=== PATIENT | female | born 1975 | race Caucasian/White ===

== ENCOUNTER 2022-06-09 12:43 | Observation (INO) ==
[2022-06-09] MEDS ORDERED: Iopamidol - 370 500 ML MLS IVP ONE (13:06)
[2022-06-09 13:32] LABS: INR 1.1; Prothrombin Time 12.4 Seconds (9.4-12.1)
[2022-06-09 14:00] LABS: Bilirubin,Urine Negative (Negative); Blood,Urine Small (Negative); Clarity,Urine Clear (Clear); Color,Urine Light-Yellow (Yellow); Glucose,Urine (UA) Normal (Normal); Ketones,Urine 100 mg/dL (Negative); Leukocyte Esterase,Urine Negative (Negative); Mucus,Urine Few per lpf (None-Few); Nitrite,Urine Negative (Negative); Protein,Urine >=300 mg/dL (Neg-Trace); Specific Gravity,Urine > 1.030 (1.010-1.025); Squamous Epithelial Cell,Urine Moderate per hpf (None-Few); Urobilinogen,Urine Normal (Normal)
[2022-06-09] MEDS ORDERED: cefTRIAXone 1,000 MG in 0.9 % Sodium Chloride Mini Bag 100 ML IVPB ONE (14:18)
[2022-06-09 14:23] LABS: Basophils % 0.2 %; Immature Granulocytes % 0.3 % (0-4); Lymphocytes # 0.6 K/mcL (0.6-4.6); Lymphocytes % 6.7 %; Mean Corpuscular HGB Conc 33.4 g/dL (31.6-35.5); Mean Corpuscular Volume 89.8 fL (83.0-100.0); Mean Platelet Volume 9.3 fL (9.4-12.4); Monocytes # 0.2 K/mcL (0.0-1.3); Monocytes % 1.8 %; Neutrophils # 8.3 K/mcL (1.6-8.9); Platelet Count 244 K/mcL (140-400); Red Cell Distribution Width 12.6 % (11.5-14.5); White Blood Count 9.1 K/mcL (4.3-11.1)
[2022-06-09 14:24] LABS: Hemoglobin 14.7 g/dL (11.5-15.4)
[2022-06-09 14:46] LABS: Amphetamine Screen,Urine Negative ng/mL (Cutoff=1000); Barbiturate Screen,Urine Negative ng/mL (Cutoff=200); Benzodiazepines Screen,Urine Negative ng/mL (Cutoff=200); Cannabinoid Screen,Urine Positive ng/mL (Cutoff = 50); Cocaine Screen,Urine Negative ng/mL (Cutoff= 300); Opiate Screen,Urine Negative ng/mL (Cutoff=300); Phencyclidine Screen,Urine Negative ng/mL (Cutoff=25)
[2022-06-09] MEDS ORDERED: 0.9 % Sodium Chloride 1,000 ML IVC ONE (15:37)
[2022-06-09 15:39] LABS: Alanine Aminotransferase 17 Units/L (7-52); Albumin 4.6 g/dL (3.5-5.7); Albumin/Globulin Ratio 1.3 (1.1-2.2); Alkaline Phosphatase 51 Units/L (34-104); Aspartate Amino Transferase 13 Units/L (13-39); BUN/Creatinine Ratio 25 (6-26); Bilirubin,Direct 0.2 mg/dL (0.0-0.2); Bilirubin,Indirect 0.5 mg/dL (0.0-1.0); Bilirubin,Total 0.7 mg/dL (0.3-1.0); Blood Urea Nitrogen 16 mg/dL (6-20); Calcium 9.3 mg/dL (8.6-10.3); Carbon Dioxide 22 mEq/L (23-29); Chloride 106 mEq/L (98-107); Ethanol < 10 mg/dL (Less than 10); Globulin 3.6 g/dL (2.4-3.5); Glucose 107 mg/dL (70-105); Lipase 16 Units/L (11-82); Magnesium 1.9 mg/dL (1.6-2.6); Osmolality,Calculated 292 (280-300); Potassium 3.5 mEq/L (3.5-5.1); Sodium 140 mEq/L (136-145); Total Protein 8.2 g/dL (6.4-8.9); Troponin I < 0.03 ng/mL (< 0.04)
[2022-06-09 15:52] LABS: Thyroid Stimulating Hormone 0.807 mcIU/mL (0.340-5.600)
[2022-06-09] MEDS ORDERED: Naloxone 0.4 MG/ML INJ IVP PRN (16:23)
[2022-06-09] MEDS ORDERED: Ondansetron 4 MG/2 ML VIAL IVP PRN (16:23)
[2022-06-09] MEDS ORDERED: Melatonin 3 MG TABLET PO PRN (16:23)
[2022-06-09] MEDS ORDERED: Prochlorperazine 10 MG/2 ML VIAL IVP PRN (16:26)
[2022-06-09] MEDS: Ringers Solution, Lactated 1,000 ML IVC SCH (18:06)
[2022-06-09] MEDS: Pantoprazole 40 MG VIAL IVP SCH (18:07)
[2022-06-10] MEDS ORDERED: Acetaminophen 325 MG TABLET PO ONE (00:36)
[2022-06-10] MEDS: Ringers Solution, Lactated 1,000 ML IVC SCH (02:07)
[2022-06-10] MEDS: Pantoprazole 40 MG VIAL IVP SCH (06:02)
[2022-06-10] MEDS ORDERED: Ketorolac 30 MG/ML VIAL IVP ONE (08:41)
[2022-06-10] MEDS ORDERED: Nicotine 21 MG PATCH.TD24 TD SCH (09:00)
[2022-06-10 09:38] LABS: Basophils % 0.4 %; Eosinophils % 0.3 %; Immature Granulocytes % 0.1 % (0-4); Lymphocytes # 2.1 K/mcL (0.6-4.6); Lymphocytes % 28.8 %; Mean Corpuscular Hemoglobin 30.4 pg (28.0-33.3); Mean Corpuscular Volume 89.2 fL (83.0-100.0); Mean Platelet Volume 9.4 fL (9.4-12.4); Monocytes # 0.5 K/mcL (0.0-1.3); Monocytes % 7.2 %; Neutrophils # 4.7 K/mcL (1.6-8.9); Platelet Count 248 K/mcL (140-400); Red Blood Count 5.27 M/mcL (3.82-4.97); Segmented Neutrophils % 63.2 %; White Blood Count 7.4 K/mcL (4.3-11.1)
[2022-06-10 10:02] LABS: BUN/Creatinine Ratio 20 (6-26); Blood Urea Nitrogen 14 mg/dL (6-20); Calcium 9.6 mg/dL (8.6-10.3); Carbon Dioxide 24 mEq/L (23-29); Chloride 106 mEq/L (98-107); Chol/HDL Ratio 4.3 (0-4.9); Cholesterol 179 mg/dL (< 200); Glucose 81 mg/dL (70-105); HDL Cholesterol 42 mg/dL (40-59); LDL Cholesterol,Calculated 122 mg/dL (< 100); Osmolality,Calculated 290 (280-300); Potassium 3.2 mEq/L (3.5-5.1); Sodium 140 mEq/L (136-145); Triglycerides 75 mg/dL (< 150)
[2022-06-10 10:15] LABS: Thyroid Stimulating Hormone 1.123 mcIU/mL (0.340-5.600)
[2022-06-10 11:10] VITALS: BP 130/68; PULSE 53; TEMP 98.6; O2SAT 95
[2022-06-10] MEDS ORDERED: Potassium Effervescent 25 MEQ TABLET.EFF PO ONE (12:49)
[2022-06-10] MEDS ORDERED: cefTRIAXone 1,000 MG in 0.9 % Sodium Chloride Mini Bag 100 ML IVPB SCH (14:00)
== END 2022-06-10 16:58 | disposition home or self-care (01) ==
LOC: EMEROOARM 12:43 → 3BNU 12:43
PROVIDERS: ADMIT Internal Medicine; ATTEND Internal Medicine